=== PATIENT | male | born 1950 | race Caucasian/White ===

== ENCOUNTER 2017-10-26 01:04 | Outpatient (CLI) | payer OTHER, SELFPAY ==
[2017-10-27 10:28] LABS: PSA, Screening 0.5 ng/ml (0-4.5)
== END 2017-10-26 01:24 ==
LOC: LBO 01:04 → LOS 11:15
PROVIDERS: PCP Emergency Medicine; Visit Provider Emergency Medicine
DX: Z12.5 Encounter for screening for malignant neoplasm of prostate (principal); N40.0 Benign prostatic hyperplasia without lower urinary tract symptoms
CPT/HCPCS: 36415; 84153

== ENCOUNTER → 2018-12-17 12:03 | Outpatient (BNVA) | payer MEDICARE, OTHER, SELFPAY | PROVIDERS: PCP Emergency Medicine; Referring Provider Emergency Medicine; Visit Provider Physical Therapy Assistant | DX: Z12.11 Encounter for screening for malignant neoplasm of colon (principal) ==

== ENCOUNTER 2019-01-11 08:45 | Day surgery (SDC) | payer MEDICARE, OTHER, SELFPAY ==
--- NOTE | 2019-01-11 06:42 | W.UPDATEHP ---
Date of service: 01/11/19 Time of Service: 09:32 Updated H&P Refer to Most Recent Clinic Note/H&P Dated: 12/17/18 H&P was reviewed,patient examined No change has occured in patient's condition since last H&P completed
--- NOTE | 2019-01-11 06:43 | W.COLOREPORT ---
Date of service: 01/11/19 Time of Service: 10:08 Colonoscopy Report Date of procedure: 01/11/19 Pre-op diagnosis general: Colon Cancer Screening Procedure: Incomplete Colonoscopy with polypectomy Surgeon: Haritha Thomas Anesthesia proc note operative: other (General/ ASA2 /Nathan garg, KAMILA) Estimated blood loss (mL): 3 Pathology: other (splenic flexure polyp and descending polyp) Complications: Other (Unable to canulate the cecum) Disposition: same day Indications: The patient is here for Colonoscopy pre-op. His last screening was in 2008 and was unremarkable. He has no family history of colon cancer. He has not had any bowel habit changes. -Discussed colonoscopy bowel prep as well as the procedure. Discussed possible complications of the procedure to include bleeding, pain, perforation, missed small lesion/polyp, sore throat, aspiration and adverse reaction to the medications. Questions were answered to patient?s satisfaction. No guarantees were implied or given. Prep: Miralax/Dulcolax Procedure Start Time: 10:08 Procedure End Time: 10:33 Retraction Time: 18 minutes Findings: 2 small polyps Very tortuous and redundant colon. I was unable to get the scope into the cecum even after changing patients position and abdominal pressure. Procedure Description: After informed consent was obtained the patient was taken to the procedure room and placed in a left decubitous position. Monitors were applied and a time out was done. The patients name, date of , procedure, allergies to medications and metal in their body was reviewed. The patient was then sedated. Once sedated and comfortable a rectal exam was done. External exam was normal. Internal exam revealed a normal sphincter tone and no palpable masses. The prostate felt smooth. The scope was then introduced and retro-flexed. no internal hemorrhoids, masses or polyps were identified on retro-flexion. The scope was then advanced to the hepatic flexure with a lot of difficulty. His colon was tortuous and redundant. Patient was placed on his back and pressure was applied to his abdomen. I was still unable to get into his cecum. The prep was good. The scope was then slowly retracted over 18 minutes back into the rectum. Polyps were removed with cold forceps in the splenic flexure and the descending colon with cold forceps. The scope was removed and the patient was woken up and taken back to Same day surgery in stable condition. The patient tolerated the procedure well and there were no immediate complications. Follow up: I will order a Barium enema for March when we are able to order fluoro again in the radiology department.
--- NOTE | 2019-01-11 06:44 | PDOC.DSDIS_ITS ---
Discharge Plan Disposition Patient Disposition: HOME Condition: Good Discharge Details Reason For Visit: Colon Cancer Screening Attending Provider: Haritha Thomas Primary Care Provider: Kvng De La Torre Home Meds and New Rx's Prescriptions: Discontinued polyethylene glycol 3350 17 gram/dose powder 238 g PO ONCE Qty: 238 RF: 0 bisacodyl [Dulcolax (bisacodyl)] 5 mg tablet,delayed release (DR/EC) 5 mg PO ONCE Qty: 4 RF: 0 Discharge Instructions Instructions: Colorectal Polyps (DC) Additional Instructions: Findings: 2 polyps Unable to get the scope all the way to the start of the large bowel. Your colon is redundant and tortuous. I will order a special X-ray to look at that part of your bowel in February or march. My office will call you with a time and date Follow up: depends on the findings on the Xray Please call if you develop: fevers >101.5 Nausea or Vomiting Abdominal pain that is not transient DAY SURGERY UNIT POST ENDOSCOPY INSTRUCTIONS 1. Because there will be medication in your system for the next 24 hours, you may feel a little sleepy. Your coordination will be affected. Therefore: a. Do not drive or operate dangerous equipment for 24 hours. b. Do not drink alcohol beverages for 24 hours (not even beer). c. Plan to go home and rest for the day. 2. Generally there are no restrictions on your activity after a day or so has gone by, but you may feel a bit fatigued for a few days. 3 After you arrive home you may have a light meal and return to a normal diet as you can tolerate it without feeling sick to your stomach. 4. After surgery, you may feel pain or discomfort. This should be only transient , but if it persists please contact your doctor. 5. If there are any questions regarding the findings of your procedure, please feel free to contact your doctor. 6. If you are unable to contact your doctor with a problem, contact the hospital at [phone]. 7. Continue all your regular medications unless directed otherwise. I understand the above instructions and have no questions. Signature of Patient or Responsible Adult Escort Date/Time Name of Responsible Adult Escort Signature of Nurse Date/Time Activity:: Activity as Tolerated Diet:: As Tolerated Discharge Orders Discharge Orders: Discharge Order (Routine); Ordered 01/11/19 Ordered By: Haritha Thomas DS: Diagnosis Discharge Diagnosis (1) History of colonoscopy: Status: Chronic (2) Colorectal polyps: Status: Acute
[2019-01-11 08:59] VITALS: BP 132/84; PULSE 60; RESP 16; TEMP 36.2; O2SAT 98
--- NOTE | 2019-01-11 09:32 | HPE_ITS ---
Date of service: 01/11/19 Time of Service: 09:32 Updated H&P Refer to Most Recent Clinic Note/H&P Dated: 12/17/18 H&P was reviewed,patient examined No change has occured in patient's condition since last H&P completed cc: Dictated by: VASU RIVERS MD Dictated: 01/11/19Time: 641 <Electronically signed by Haritha Rivers M.D.> Date: 03/13/18931 Date: Date: Transcribed Date: 01/11/19 Transcribed Time: 641By: TRAM
[2019-01-11] MEDS: Lactated Ringers 1,000 ML 80 ML IV (09:36)
--- NOTE | 2019-01-11 11:18 | BOWEL_PTH ---
PATIENT: Kevin Gallego LOC: [facility] U#:[id number] AGE/SX: 68/M ROOM: RE01/11/[address]: Haritha Thomas MD : 1950 BED: DIS: 01/11/2019 SPEC #: [id number] RECD: 01/11/19 12:43 STATUS: SITA REQ #: [id number] MAILE: 01/11/19 11:[address]: Haritha Thomas DEPT: Surgical Specimen RECD BY: Dasha Liam ENTERED: 01/11/19 12:45 SP TYPE: Bowel OTHR DR: Kvng De La Torre DO Tissues: 1 - BIOPSY BOWEL 2 - BIOPSY BOWEL Procedures: GROSS AND MICRO LEVEL 4 Comments: [id number]
[2019-01-11 12:15] VITALS: BP 131/91; PULSE 54; RESP 16; TEMP 35.9; O2SAT 98
== END 2019-01-11 12:45 | disposition home or self-care (01) ==
LOC: SUR 08:46
PROVIDERS: PCP Emergency Medicine; Visit Provider Surgery
PROC: 0DJD8ZZ Inspection of Lower Intestinal Tract, Via Natural or Artificial Opening Endoscopic (ICD-10-PCS; CPT 45378; principal; 2019-01-11 10:00)
DX: Z12.11 Encounter for screening for malignant neoplasm of colon (principal); D12.3 Benign neoplasm of transverse colon; D12.4 Benign neoplasm of descending colon; Q43.8 Other specified congenital malformations of intestine
CPT/HCPCS: 45380; 88305; J2250; J3010

== ENCOUNTER 2019-11-18 04:31 | Outpatient (CLI) | payer MEDICARE, OTHER, SELFPAY ==
[2019-11-18 15:36] LABS: Calculated LDL 137 mg/dL (<100); Cholesterol 199 mg/dL (<200); HDL Cholesterol 50 mg/dL (40-60); Triglyceride 62 mg/dL (<150)
== END 2019-11-18 04:51 ==
PROVIDERS: PCP Emergency Medicine; Visit Provider Emergency Medicine
DX: E78.89 Other lipoprotein metabolism disorders (principal)
CPT/HCPCS: 36415; 80061

== ENCOUNTER 2020-11-13 17:09 | Outpatient (REF) | payer MEDICARE, OTHER, SELFPAY ==
[2020-11-14 17:54] LABS: PSA, Screening 0.5 ng/mL (0.0-4.5)
== END 2020-11-13 17:10 | disposition home or self-care (01) ==
LOC: LBN 17:09
PROVIDERS: PCP Emergency Medicine; Visit Provider Emergency Medicine
DX: N40.0 Benign prostatic hyperplasia without lower urinary tract symptoms (principal); Z12.5 Encounter for screening for malignant neoplasm of prostate
CPT/HCPCS: 84153

== ENCOUNTER 2024-01-05 03:10 | Outpatient (CLI) | payer MEDICARE, SELFPAY ==
[2024-01-05 13:12] LABS: ALT 33 U/L (16-63); AST 21 U/L (15-37); Albumin 4.1 g/dL (3.4-5.0); Alkaline Phosphatase 70 U/L (46-116); Anion Gap 10.5 mmol/L (3-11); BUN 20 mg/dL (7-18); Bilirubin, Total 0.59 mg/dL (0.2-1.0); CO2 28.5 mmol/L (21.0-32.0); CREATININE 1.3 mg/dL (0.70-1.30); Calcium 9.3 mg/dL (8.5-10.1); Calculated LDL 112 mg/dL (<100); Chloride 107 mmol/L (98-107); Cholesterol 176 mg/dL (<200); Estimated GFR 58.73 (mL/min/1.73m2); Glucose 93 mg/dL (74-106); HDL Cholesterol 48 mg/dL (40-60); Potassium 4.9 mmol/L (3.5-5.1); Sodium 146 mmol/L (136-145); Triglyceride 83 mg/dL (<150)
[2024-01-05 19:19] LABS: Hepatitis C Ab w Rflx HCV PCR Negative (Negative)
[2024-01-05 19:21] LABS: HIV-1/2 Ag & Ab Screen Negative (Negative)
== END 2024-01-05 03:11 | disposition home or self-care (01) ==
LOC: LOS 03:10
PROVIDERS: PCP Nurse Practitioner Family; Visit Provider Nurse Practitioner Family
DX: Z11.4 Encounter for screening for human immunodeficiency virus [HIV] (principal); E78.5 Hyperlipidemia, unspecified; Z11.59 Encounter for screening for other viral diseases; Z12.12 Encounter for screening for malignant neoplasm of rectum; Z12.11 Encounter for screening for malignant neoplasm of colon
CPT/HCPCS: 36415; 80053; 80061; 86803; 87389

== ENCOUNTER → 2024-03-24 08:40 | Outpatient (BNVA) | payer MEDICARE, SELFPAY | PROVIDERS: PCP Nurse Practitioner Family; Referring Provider Nurse Practitioner Family; Visit Provider Physical Therapy Assistant | DX: Z12.11 Encounter for screening for malignant neoplasm of colon (principal); Z86.0101 Personal history of adenomatous and serrated colon polyps ==

== ENCOUNTER 2024-04-04 06:57 | Day surgery (SDC) | payer MEDICARE, SELFPAY ==
--- NOTE | 2024-04-03 06:24 | PDOC.DSDIS_ITS ---
Date of service: 04/04/24 Discharge Plan Disposition Patient Disposition: Home Condition: Good Discharge Details Reason For Visit: screening colonoscopy Attending Provider: Williams Tavera Primary Care Provider: Joseph Munoz Home Meds and New Rx's Prescriptions: Discontinued bisacodyl [Dulcolax (bisacodyl)] 5 mg tablet,delayed release (DR/EC) 5 mg PO ONCE Qty: 4 0RF Rx Instructions: Take per colonoscopy instructions provided by ordering providers office polyethylene glycol 3350 17 gram/dose powder 17 g PO ONCE Qty: 238 0RF Rx Instructions: Take per colonoscopy instructions provided by ordering providers office Discharge Instructions Instructions: Colon polyps Additional Instructions: Kevin, was pleasure meeting you today and I hope you are comfortable through the procedure. Everything went very smoothly. We did find, and removed, single polyp today. Similar to your previous experiences, this will be sent off to the pathologist for their review. Once my office has those results, we will be in touch with recommendations for your future colonoscopies. If you need anything or have any questions in the meantime, please do not hesitate to ask. 1. If tolerated, consume a soft, low fiber diet for 1-2 days. 2. Do not drive, drink alcohol, operate machinery, make critical decisions, or do activities that require coordination or balance for 24 hours. 3. Because air was put into your colon during the procedure, expelling air from your rectum (passing gas or farting) is normal. 4. You may not have a bowel movement for 1-3 days because of the colonoscopy prep. This is normal. 5. Go directly to the emergency room if you notice any of the following: Develop chills (warm to touch), or if you have a thermometer and your temperature is above 101 Difficulty breathing or difficultly swallowing Persistent vomiting Severe abdominal pain, other than gas cramps Severe chest pain Black, tarry stools Any bleeding ? exceeding one tablespoon 6. Call your physician if the site where your intravenous was started becomes re d, swollen, painful, and warm to touch. 7. Your physician has reviewed your pre-procedure medications. Please continue to take those medications as previously ordered. You will be given specific information/education regarding any changes to your medications before leaving. Stand Alone Forms: Anesthesia Discharge Alfredo Jamil (MACKENZIE) Activity:: Activity as Tolerated Diet:: As Tolerated Discharge Orders Discharge Orders: Discharge Order (Routine); Ordered 04/03/24 Ordered By: Williams Tavera DS: Diagnosis Discharge Diagnosis (1) Encounter for screening colonoscopy: Status: Acute Asessment and Plan: Follow-up on polypectomy results
--- NOTE | 2024-04-03 06:25 | W.COLOREPORT ---
Date of service: 04/04/24 Time of Service: 08:43 Colonoscopy Report Date of procedure: 04/04/24 Pre-op diagnosis general: screening colonoscopy Post-op diagnosis procedure note: other (Colon polyp) Procedure: colonoscopy with polypectomy Surgeon: Williams Tavera Anesthesia Type: General:No Airway Estimated blood loss (mL): 5 Pathology: other (0.25 cm flat polyp at 75 cm) Complications: None Disposition: same day Indications: Kevin is a 73 year old man with a history of adenomatous polyps who needs his next screening colonoscopy Prep: Miralax/Dulcolax Procedure Start Time: 08:09 Procedure End Time: 08:33 Retraction Time: 6 Findings: 0.25 cm flat polyp at 75 cm Procedure Description: After the induction of anesthesia, and with the patient in left lateral decubitus position, I began by performing an external anorectal exam.? Perineum and skin were normal, as was the anal verge.? There was no evidence of external hemorrhoids.? Next, I performed a digital rectal exam.? I did not appreciate any abnormal findings.? Next, I advanced a colonoscope into the rectal vault.? I performed retroflexion.? This appeared normal. Using insufflation, I then advanced the colonoscope beyond the rectal folds and into the sigmoid colon before advancing towards the cecum.? The quality of the prep was .? The scope was noted to be in the cecum by identification of the ileocecal valve and appendiceal orifice.? I then began withdrawing the colonoscope using repeated irrigation as necessary for full evaluation of the colonic mucosa. Around 75 cm from the anal verge I identified a 0.25 cm polyp. ?It appeared flat in character. ?I was able to remove this with a cold forcep polypectomy. ?I examined the site, and there was minimal bleeding. ?Once this was completed, I continued to withdraw the scope and examine the remainder of the colonic mucosa.?Once the scope was withdrawn to the level of the rectum, great care was taken to examine portions of the rectal folds.? Finally, the scope was withdrawn and the patient was brought to the same-day surgery recovery unit as the anesthetic wore off. ?The findings and instructions were shared with the patient prior to discharge. [place] Bowel Prep [place] Bowel Prep Right Colon: 3 Left Colon: 3 Transverse Colon: 3 Total Score: 9
--- NOTE | 2024-04-03 18:12 | W.ANESPRE ---
General Info Date of Service Date Performed: 04/04/24 Height: 5 ft 11 in Weight: 101.605 kg Body Mass Index (BMI): 31.2 Surgical Procedure: Operation Date: 04/04/24 08:20 Proposed Procedure Side Surgeon p Colonoscopy Williams Tavera MD Meds Allergies and Home Medications Allergies Allergy/AdvReac Type Severity Reaction Status Date / Time No Known Allergies Allergy Verified 04/04/24 07:02 Current Visit Medications: Current Medications Generic Name Dose Route Start Last Admin Trade Name Freq PRN Reason Stop Dose Admin Ringer's Solution 1,000 mls @ 80 mls/hr 04/04/24 06:00 IV 04/04/24 23:59 INFUSION IGNACIO IV Miscellaneous Supplies 1 each 04/04/24 06:00 Iv Access IV 04/04/24 23:59 DIRECTED IGNACIO Ondansetron HCl 4 mg 04/03/24 06:27 Ondansetron 4 Mg/2 Ml Vial IVP 05/03/24 06:26 Q4H PRN PRN Nausea / Vomiting Sodium Chloride 0 ml 04/04/24 06:00 Normal Saline Flush 10 Ml Syr IV 04/04/24 23:59 PRN PRN Sodium Chloride 0 ml 04/04/24 06:00 Normal Saline 10 Ml Vial IJ 04/04/24 23:59 DIRECTED PRN Sterile Water 0 ml 04/04/24 06:00 Water,Injection,Sterile 10 Ml Vial IJ 04/04/24 23:59 DIRECTED PRN PFSH Active Problems Active Problems: Problem Status Onset Code Encounter for screening colonoscopy Acute Z12.11 Hyperlipidemia Acute E78.5 Encounter for annual physical exam Acute Z00.00 BPH (benign prostatic hyperplasia) Chronic N40.0 Colorectal polyps Acute K63.5 History of colonoscopy Chronic ~01/11/19 Z98.890 Surgical History Surgical History History of hydrocelectomy Tobacco Smoking/Tobacco Use Status: Never Passive smoking exposure: No Second hand exposure: No Alcohol Alcohol Intake: current Alcohol intake frequency: a few times a week Alcohol type: beer Substance Use Substance use: Never Vital Signs and Lab Results Vital Signs Most Recent Vital Signs in EMR: Temp Pulse Resp BP Pulse Ox 36.2 C L 72 16 134/94 H 72 L 04/04/24 07:00 04/04/24 07:00 04/04/24 07:00 04/04/24 07:00 04/04/24 07:00 Lab Results Blood Type / Crossmatch: No Data to Display Complete Blood Count: No Data to Display Complete Metabolic Panel: No Data to Display Liver Function Panel: No Data to Display Coagulation Panel: No Data to Display Cardiac Panel: No Data to Display Arterial Blood Gas: No Data to Display Venous Blood Gas: No Data to Display Pancreas Panel: No Data to Display Thyroid Panel: No Data to Display Infectious Disease: No Data to Display Blood Cultures: No Data to Display Toxicology Panel: No Data to Display Anesthesia Assessment and Plan Anesthesia History Personal History: No History of Anesthesia Complications Family History: No Family History of Anesthesia Complications Exercise Tolerance Exercise Tolerance: Metabolic Equivalents>4 Cardiac & Pulmonary Exam Cardiac Exam: Normal S1/S2 Heart Sounds Pulmonary Exam: Clear Bilateral Breath Sounds Implantable Cardiac Device Does patient have a Pacemaker or an ICD?: No Airway Exam Known Difficult Airway: No Mallampati Class: 3 Mouth Opening: Normal (> 3cm) Thyromental Distance: Greater than 3 cm Neck Range of Motion: Full ROM Neck Circumference: Normal Teeth Condition: Normal Dentition ASA Classification ASA Score: ASA 2 Emergency Case?: No NPO Status NPO Status: NPO Clears >2 hours, Solids >8 hours Anesthesia Plan Resuscitation Status: Full Code Anesthesia Technique: General Anesthesia Airway Planned: Natural Airway Monitors Used: Standard Monitors Preoperative Comments:: 73 yo male for colo. Sig PMHx: no major, no home meds. Diet related GERD. Appropriately NPO, currently hungry. Previous Anes: - colo, fent/midaz, prop, natural airway, no issues.
[2024-04-04 07:00] VITALS: BP 134/94; PULSE 72; RESP 16; TEMP 36.2; O2SAT 72
[2024-04-04] MEDS: Lactated Ringers 1,000 ML 80 ML IV (07:31)
[2024-04-04 07:40] VITALS: BMI 31.2
--- NOTE | 2024-04-04 08:12 | BOWEL_PTH ---
PATIENT: Kevin Gallego LOC: [facility] U#:[id number] AGE/SX: 73/M ROOM: RE04/04/[address]: Williams Tavera MD : 1950 BED: DIS: 04/04/2024 SPEC #: [id number] RECD: 04/04/24 12:29 STATUS: SITA RESvetlana #: [id number] MAILE: 04/04/24 08:[address]: Williams Tavera DEPT: Surgical Specimen RECD BY: Dasha Lima ENTERED: 04/04/24 12:30 SP TYPE: Bowel OTHR DR: Joseph Doll, TIFF Tissues: 1 - BIOPSY BOWEL Procedures: GROSS AND MICRO LEVEL 4 Comments: [id number]
[2024-04-04 08:38] VITALS: BP 95/85; PULSE 83; RESP 16; TEMP 36.4; O2SAT 94
--- NOTE | 2024-04-04 08:49 | W.ANESPOSTOP ---
Postoperative Evaluation Date, Time and Location Date Performed: 04/04/24 Time Performed: 08:49 Patient Location: Day Surgery Unit Vital Signs Most Recent Imported Vital Signs: Most Recent Vital Signs Temp Pulse Resp BP Pulse Ox 36.4 C L 83 16 95/85 L 94 04/04/24 08:38 04/04/24 08:38 04/04/24 08:38 04/04/24 08:38 04/04/24 08:38 Pain Score Most Recent Pain Score: Most Recent Pain Score Pain Level 0 04/04/24 08:38 Assessment Mental Status: Awake (Alert & Oriented to Patient Baseline) Airway and Respiratory Function: Patent airway with normal (patient baseline) respiratory exam Cardiovascular Function: Hemodynamically Stable Hydration Status: Adequately Hydrated Nausea & Vomiting: No Nausea or Vomiting Pain: Pt. Denies Any Pain Peripheral Nerve Block: Patient did not receive a nerve block
[2024-04-04 09:14] VITALS: BP 116/79; PULSE 66; RESP 17; TEMP 36.3; O2SAT 95
== END 2024-04-04 09:24 | disposition home or self-care (01) ==
LOC: SUR 06:57
PROVIDERS: PCP Nurse Practitioner Family; Visit Provider Surgery
PROC: 0DJD8ZZ Inspection of Lower Intestinal Tract, Via Natural or Artificial Opening Endoscopic (ICD-10-PCS; CPT 45378; principal; 2024-04-04 08:15)
DX: Z12.11 Encounter for screening for malignant neoplasm of colon (principal); D12.4 Benign neoplasm of descending colon
CPT/HCPCS: 45380; 88305; J2704